=== PATIENT | female | born 1945 | race Caucasian/White ===

== ENCOUNTER → 2019-03-26 | Outpatient (CLI) | payer MEDICARE ==
[2019-03-26 17:12] LABS: Basophils % (A) 0 %; Eosinophils # (A) 0.2 k/uL (0-0.7); Eosinophils % (A) 3 %; HCT 43.6 % (34.0-46.0); Lymphocytes # (A) 2.3 k/uL (1.0-4.8); Lymphocytes % (A) 27 %; MCH 28.2 pg (25.0-35.0); MCHC 32.1 g/dL (31.0-37.0); MCV 87.9 fL (80.0-100.0); Mean Platelet Volume 7.4; Monocytes # (A) 0.4 k/uL (0-1.0); Monocytes % (A) 5 %; Neutrophils # (A) 5.4 k/uL (1.3-7.7); Neutrophils % (A) 63 %; Platelet Count 337 k/uL (150-450); RBC 4.96 m/uL (3.80-5.40); RDW 13.8 % (11.5-15.5); WBC 8.7 k/uL (3.8-10.6)
[2019-03-26 17:13] LABS: Appearance,Urine Cloudy (Clear); Bilirubin,Urine Negative (Negative); Blood,Urine Negative (Negative); Color,Urine Yellow; Glucose,Urine (UA) Negative (Negative); Ketones,Urine Negative (Negative); Leukocyte Esterase,Urine Negative (Negative); Mucus,Urine Occasional /hpf; Nitrite,Urine Negative (Negative); Protein,Urine Negative (Negative); RBC,Urine 2 /hpf (0-5); Specific Gravity,Urine 1.026 (1.001-1.035); Squamous Epithelial Cell,Urine 7 /hpf (0-4); Urobilinogen,Urine <2.0 mg/dL (<2.0); WBC,Urine 2 /hpf (0-5)
[2019-03-26 17:20] LABS: INR 0.9 (<1.2); Partial Thromboplastin Time 25.8 sec (22.0-30.0); Prothrombin Time 9.7 sec (9.0-12.0)
[2019-03-26 17:25] LABS: Calcium 9.6 mg/dL (8.4-10.2); Potassium 4.5 mmol/L (3.5-5.1)
== END | disposition home or self-care (01) ==
LOC: LABWHC1 15:50
PROVIDERS: ATTEND Orthopaedic Surgery Orthopaedic Surgery of the Spine
DX: Z01.812 Encounter for preprocedural laboratory examination (principal); M48.061 Spinal stenosis, lumbar region without neurogenic claudication; Z79.01 Long term (current) use of anticoagulants
CPT/HCPCS: 36415; 80048; 81001; 85025; 85610; 85730; 87070

== ENCOUNTER 2019-04-03 09:29 | Inpatient (IN) | payer MEDICARE ==
[2019-04-01 11:58] VITALS: BMI 42.3
[~2019-04-03 09:29] MED LIST: BACITRACIN 50,000 UNIT, POLYMYXIN B 500,000 UNIT in SODIUM CHLORIDE 0.9% IRRIGATIO 1,00... IRRIGATION ONE; LIDOCAINE 1% 20 ML VIAL (10MG/ML) FOR IV START INTRADERMA PRN; ONDANSETRON 4 MG/2 ML VIAL IVP ONE; ceFAZolin 3 GM in SODIUM CHLORIDE 0.9% 100 ML IVPB ONE
[2019-04-03] MEDS: LACTATED RINGERS 1,000 ML IV SCH (11:55)
[2019-04-03] MEDS ORDERED: MIDAZOLAM 2 MG/2 ML VIAL IVP ONE (12:00)
[2019-04-03] MEDS ORDERED: PHENYLEPHRINE-0.9% NACL SYG 1 MG/10 ML SYRINGE ONE (12:48)
[2019-04-03] MEDS ORDERED: DEXAMETHASONE SOD PHOS (MDV) 100 MG/10 ML VIAL ONE (12:48)
[2019-04-03] MEDS ORDERED: ROCURONIUM BROMIDE 10 MG/ML 10 ML VIAL IV ONE (12:48)
[2019-04-03] MEDS ORDERED: LACTATED RINGERS 1,000 ML BAG IV ONE (12:48)
[2019-04-03] MEDS ORDERED: MIDAZOLAM 2 MG/2 ML VIAL ONE (12:48)
[2019-04-03] MEDS ORDERED: FUROSEMIDE 10 MG/ML 2 ML VIAL ONE (12:48)
[2019-04-03] MEDS ORDERED: SUCCINYLCHOLINE CHLORIDE 100 MG/5 ML SYR IV ONE (12:48)
[2019-04-03] MEDS ORDERED: HEPARIN SODIUM,PORCINE 5,000 UNIT/ML 1 ML VIAL ONE (12:48)
[2019-04-03] MEDS ORDERED: PROPOFOL 10 MG/ML 20 ML VIAL IV ONE (12:48)
[2019-04-03] MEDS ORDERED: KETAMINE 10 MG/ML 20 ML VIAL ONE (12:48)
[2019-04-03] MEDS ORDERED: LIDOCAINE 1% INJ 10MG/ML (20 ML MDV) ONE (12:48)
[2019-04-03] MEDS ORDERED: HYDROmorphone (PF) 1 MG/ML ONE (12:48)
[2019-04-03] MEDS ORDERED: fentaNYL (PF) 50 MCG/ML 2 ML AMP ONE (12:48)
[2019-04-03] MEDS ORDERED: GELATIN SPONGE,ABSORB (LARGE) 1 EACH SPONGE TOPICAL ONE (13:41)
[2019-04-03] MEDS ORDERED: THROMBIN (BOVINE) 5,000 UNIT VIAL TOPICAL ONE (13:41)
[2019-04-03] MEDS ORDERED: BUPIVACAIN-EPI 0.25%-1:200,000 30 ML VIAL SQ ONE (13:42)
[2019-04-03] MEDS ORDERED: LACTATED RINGERS 1,000 ML IV ONE ×3 (14:21→17:58)
[2019-04-03] MEDS ORDERED: SODIUM CHLORIDE 0.9% 100 ML with ceFAZolin 2,000 MG IV ONE ×2 (17:05)
[2019-04-03] MEDS ORDERED: HYDROmorphone 0.5 MG/0.5 ML SYRINGE IVP PRN (19:05)
[2019-04-03] MEDS ORDERED: BENZOCAINE/MENTHOL LOZENG 1 EACH LOZENGE MUCOUS MEM PRN (19:05)
[2019-04-03] MEDS ORDERED: MAGNESIUM HYDROXIDE 2,400 MG/10 ML CUP PO PRN (19:05)
[2019-04-03] MEDS ORDERED: HYDROcodone/APAP 5-325MG 1 EACH TAB PO PRN (19:06)
[2019-04-03] MEDS ORDERED: HYDROmorphone 1 MG/ML 1 ML SYRINGE IVP PRN (19:06)
--- NOTE | 2019-04-03 19:18 | P.OP ---
Date of Procedure: 04/03/19 Preoperative Diagnosis: Spondylolisthesis L3 4 L4 5, severe spinal stenosis L3 4 L4 5, facet arthrosis L3 4 L4 5, lower extremity neuropathy, lower extremity weakness, neurogenic claudication, low back pain, degenerative disc disease, morbid obesity Postoperative Diagnosis: Same Anesthesia: GETA Pathology: none sent Condition: stable Disposition: PACU Description of Procedure: DESCRIPTION OF PROCEDURE(S): BRIEF OPERATIVE NOTE Preoperative Diagnosis: Spondylolisthesis L3 4 L4 5, severe spinal stenosis L3 4 L4 5, facet arthrosis L3 4 L4 5, lower extremity neuropathy, lower extremity weakness, neurogenic claudication, low back pain, degenerative disc disease, morbid obesity Postoperative Diagnosis:Spondylolisthesis L3 4 L4 5, severe spinal stenosis L3 4 L4 5, facet arthrosis L3 4 L4 5, lower extremity neuropathy, lower extremity weakness, neurogenic claudication, low back pain, degenerative disc disease, morbid obesity Procedure: Laminectomy and decompression L3 4 L4 5 Minimally invasive Posterior lateral decompression with discectomy and facet fusion L3 4 L4 5 Minimally invasive Transforaminal lumbar interbody fusion for a 360 fusion L3 4 L4 5 Discectomy for decompression L3 4 L4 5 Placement of interbody graft L3 4 L4 5 Use of demandmart computer navigation assisted device for ankle screw placement Local autogenous bone grafting Harvesting of bone marrow aspirate via the pedicle and vertebral body of L3 Use of Cell Saver Use of bone graft extenders Increased level of difficulty and time for the case due to patient's morbid obesity and body habitus Surgeon: Dr. Andrews Tube Pusher: Maurice Perez is present throughout the entire the case persistence during positioning, dissection, exposure, visualization, and all crucial elements of the case as well as closure. Anesthesia: General anesthesia per Dr. Chavez Estimated blood loss: Approximate 750 mL with a portion given back through Cell Saver Complications: None apparent Components implanted: K2M minimally invasive [place] pedicle screw system with [place] interbody cages and 10 mL of bio4 bone grafting and 30 mL of DBX bone matrix to supplemental local autogenous bone graft and bone marrow aspirate Disposition: To recovery room in good stable condition. OPERATIVE INDICATIONS The patient has had long-standing issues in their lower back and lower extremities. She is having worsening of her pain and issues with her lower extremities bilaterally. She is having evidence of weakness in her lower extremities difficulty getting around and difficulty with any sort of activities. She was having significant debility due to her back pain and lower extremity issues. She is found have severe spondylolisthesis and spinal stenosis at her lumbar spine which Maricruz well with her low back and lower e xtremity symptoms. The patient was not having any benefit despite aggressive conservative treatment. The patient has been through conservative treatment. We discussed various treatment options including surgery, and the patient wishes to proceed with surgery We discussed the risk, patient's alternatives and benefits of surgery including but not limited to, risk of bleeding risk of infection, risk of need for further surgery, risk of decreased, loss of motion, muscle function, malunion nonunion, hardware failure, nerve damage, paralysis, heart attack, blindness and . OPERATIVE SUMMARY After discussing all the risks, patient alternatives and benefits at length, the patient elected to proceed with surgical intervention, signed informed consent, and presented for their procedure. The patient was seen and examined in the preoperative holding area and the surgical site was marked. The patient was given antibiotics and brought to the operating room. The patient was sedated and intubated by anesthesia in standard fashion. The patient was positioned on to the operating room table in a prone position on the appropriate frame which was well-padded and well molded. We were careful to pad any bony prominences and pressure points. We were careful to maintain the patient's cervical spine and good neutral alignment and position throughout. The patient is morbidly obese and this increased the amount of time and effort and difficulty of the case through each aspect from anesthesia to positioning to dissection placement of hardware decompression, all of these were involved and are difficult. The patient was prepped and draped in a normal standard fashion. An appropriate timeout and keystone protocol performed. We were able to proceed with the surgery. The local wound area was infiltrated with local anesthetic. I was able utilize C-arm guidance as well as the demandmart navigation to establish appropriate position over the pedicles bilaterally at the appropriate levels at L3 4 and 5. With the appropriate levels confirmed was able to make small stab incisions over the appropriate pedicle sites bilaterally. Utilizing C-arm in his house able to establish a Jamshidi needle over the lateral aspect of the pedicle and advanced the trocar into the pedicle being careful not to breech superiorly inferiorly medially or laterally. Position was confirmed regularly with AP and lateral images on C-arm and the demandmart navigation system. I was able to establish the trocar into the pedicle appropriately into the posterior aspect of the vertebral body bilaterally at the appropriate levels at L3 4 and 5. This was done at each of the pedicle positions and each of the vertebrae. I was able place the guidewire into the trocar and into the vertebral body appropriately under C-arm guidance. Dissection was taken down over the wire to the appropriate starting position for the screw placed. The appropriate length screw was chosen, threaded over the guidewire and screwed appropriately into the pedicle and vertebral body under C-arm guidance in excellent alignment and position with good bony purchase. At L5 on the left we had issues with stimulation of the screw and I removed that screw and replaced its position. I was able get excellent alignment and position and excellent bony purchase with no evidence of stimulation with the Nims system. I was able stimulation each of the screws without any evidence of stimulation. This is done at each of the screw sites at the appropriate levels at L3 4 and 5. With the screws intact I extended the incision to connect the screw hole sites on the most symptomatic side on the right at L3 4 and 5. I dissected down to establish access over the pars and lamina to the base of the spinous process. I was able to expose the facet joint. Again that the patient's body habitus cause significant increased difficulty and time in the case. The capsule the facet was taken down and showed some facet arthrosis at the joint. I was able to use a combination of curettes and Kerrison rongeurs and a high-speed drill to take down the facet joint and do a facetectomy. Partial laminectomy was also performed. I was able get excellent foraminal decompression and central decompression with undermining across midline to perform a laminectomy centrally and contralaterally. The patient had severe central and bilateral foraminal stenosis which was remedied with the decompression. As able get good central decompression. The ligamentum flavum was taken down to further decompress centrally and at bilateral neural foramen. I was able to expose the disc space and visualize the traversing nerve root. Note was made of some disc protrusion at the level causing further compression of the nerve root. I was able to establish a annulotomy at the appropriate level protecting soft tissue and neural structures. Note was made of some disc desiccation at the disc. I performed a complete discectomy with accommodation of curettes and rasps and scrapers. I was able get good endplate preparation at the disc space. I sized for the appropriate size interbody spacer protecting the soft tissue and neural structures. The wound was copiously irrigated and suctioned dry. There is no evidence of any dural tear or leak. I was able to pack the disc space with local autogenous bone graft as well as a small amount of bone graft which was also placed into the interbody cage itself. Protecting the soft tissue structures and neural structures I was able place the interbody cage in good alignment and good position with good fit and fill at the interbody space. Position was confirmed with C-arm guidance. Good hemostasis maintained. There is no evidence of any dural tear or leak. The wound was irrigated and suctioned dry. With the hardware intact, intraoperative C-arm imaging was again taken which showed good alignment and position of the hardware at the appropriate levels at L3 4 and 5. We were then able to measure, contour and place the rods and appropriate hardware bilaterally. I was able to place capcrews, tighten them down, and torque them with the torque screwdriver appropriately. With this intact I was able to place the local autogenous bone graft with additional bone graft enhancer as necessary into the posterior lateral gutters over the decorticated transverse processes. The remainder of the bone graft was placed over the facet joint on the contralateral side after taking down the facet joint capsule. With the bone graft intact, a stable construct, and good decompression at the appropriate levels, we were able to proceed with closure. Good hemostasis was maintained. There is no evidence of dural tear or leak. The fascia was closed for a watertight closure. he subcuticular tissue was closed with absorbable suture. The wound was cleaned and dried and dressed with the appropriate dressing. The drapes were broken down. The patient was gently rolled back onto their hospital bed being careful to maintain their cervical spine and good neutral alignment and position. They were woken up by anesthesia, extubated, and brought to the recovery room in good stable condition. The patient will be admitted to the hospital for appropriate postoperative care, medical management and monitoring. We will continue to follow them closely about the postoperative course.
[2019-04-03] MEDS: HYDROmorphone 0.5 MG/0.5 ML SYRINGE IVP PRN ×2 (19:25→19:40)
[2019-04-03] MEDS ORDERED: amLODIPine 5 MG TAB PO SCH (21:00)
[2019-04-03] MEDS ORDERED: LOSARTAN-HCTZ 50-12.5 MG 1 EACH TAB PO SCH (21:00)
[2019-04-03] MEDS: ONDANSETRON 4 MG/2 ML VIAL IVP PRN (21:06)
--- NOTE | 2019-04-03 21:49 | FL ---
EXAMINATION TYPE: FL guidance operating room DATE OF EXAM: 04/03/2019 HISTORY: Fluoroscopy time 1 minute and 49 seconds of fluoroscopy provided. IMPRESSION: 1. Fluoroscopy time. AI
[2019-04-03] MEDS: HYDROmorphone 1 MG/ML 1 ML SYRINGE IVP PRN (22:47)
[2019-04-03] MEDS: SODIUM CHLORIDE 0.9% 1,000 ML IV SCH (22:48)
[2019-04-04] MEDS: ceFAZolin 3 GM in SODIUM CHLORIDE 0.9% 100 ML IVPB SCH ×4 (00:37→23:46)
[2019-04-04] MEDS: HYDROmorphone 1 MG/ML 1 ML SYRINGE IVP PRN ×7 (01:42→21:42)
[2019-04-04] MEDS: CYCLOBENZAPRINE 10 MG TAB PO PRN ×3 (07:37→21:44)
[2019-04-04 07:51] LABS: Basophils # (A) 0.1 k/uL (0-0.2); Basophils % (A) 1 %; Eosinophils % (A) 0 %; HCT 38.7 % (34.0-46.0); HGB 12.1 gm/dL (11.4-16.0); Lymphocytes # (A) 1.2 k/uL (1.0-4.8); Lymphocytes % (A) 8 %; MCH 27.3 pg (25.0-35.0); MCHC 31.2 g/dL (31.0-37.0); MCV 87.5 fL (80.0-100.0); Mean Platelet Volume 7.3; Monocytes # (A) 0.7 k/uL (0-1.0); Monocytes % (A) 5 %; Neutrophils % (A) 85 %; Platelet Count 244 k/uL (150-450); RBC 4.43 m/uL (3.80-5.40); RDW 13.8 % (11.5-15.5); WBC 14.2 k/uL (3.8-10.6)
[2019-04-04 07:58] LABS: African American GFR (CKD) >90 (>60 ml/min/1.73 sqM); Anion Gap 5 mmol/L; Blood Urea Nitrogen 14 mg/dL (7-17); Calcium 8.5 mg/dL (8.4-10.2); Carbon Dioxide 31 mmol/L (22-30); Chloride 104 mmol/L (98-107); Glucose 132 mg/dL (74-99); Non-African American GFR(CKD) 80 (>60 ml/min/1.73 sqM); Potassium 4.6 mmol/L (3.5-5.1); Sodium 140 mmol/L (137-145)
[2019-04-04] MEDS: SENNOSIDES-DOCUSATE SODIUM 1 EACH TAB PO SCH (08:25)
[2019-04-04] MEDS: ASCORBIC ACID 500 MG TAB PO SCH (08:25)
[2019-04-04] MEDS ORDERED: NON FORMULARY DRUG (Biotin [Biotin] 10,000 MCG) PO SCH (09:00)
[2019-04-04] MEDS: LACTATED RINGERS 1,000 ML IV SCH (09:29)
[2019-04-04] MEDS: traMADol 50 MG TAB PO PRN ×3 (10:39→23:47)
--- NOTE | 2019-04-04 11:21 | P.PN ---
Progress Note - Text Progress Note Date: 04/04/19 Postoperative day #1 Patient is seen and examined today at bedside. The patient has some pain around the surgical site as expected. Pain is being controlled with medication. She has been up out of bed standing at her bedside. She still has. Significant difficulty with any sort of mobilization. Physical Exam Afebrile with stable vital signs Abdomen is soft nontender. Chest has good excursion deep and space expiration The incision site is clean dry and intact. No erythema there is no purulence. Dressings are intact and clean Extremities have not had neurologic change from prior to surgery. She has sustained dorsal flexion plantar flexion and EHL intact Calves and thighs were soft nontender without evidence of DVT. Assessment/Plan Postoperative day #1 status post milium base of decompression and fusion L3 4 L4 5 for her severe spinal stenosis with spondylolisthesis disc degeneration lower extremity radiculopathy Patient is progressing as expected from the surgery. She has great deal of difficulty with her mobilization and it'll be very difficult for her to have her Pop out today given her body habitus and mobility. We'll continue the IV and Robaxin have her keep her Pop the morning. We will continue to increase the patient's mobilization with therapy. We will continue pain control with oral or IV medications. We'll continue to follow patient closely.
[2019-04-04] MEDS: SODIUM CHLORIDE 0.9% 1,000 ML IV SCH ×2 (12:31→23:48)
--- NOTE | 2019-04-04 13:22 | P.CONS ---
History of Present Illness - Reason for Consult COPD - History of Present Illness patient is a pleasant 81-year-old female admitted for left lumbar decompression surgery of L3-L4 and L4-L5 and severe spinal stenosis patient successfully underwent surgery did not pass gas did not move her bowel yet patient doesn't have any Pop catheter this time. Patient denied any fever chills. Denied any cough dysuria.patient is still having severe pain in the back. Review of Systems REVIEW OF SYSTEMS: CONSTITUTIONAL: No fever, no malaise, no fatigue. HEENT: No recent visual problems or hearing problems. Denied any sore throat. CARDIOVASCULAR: No chest pain, orthopnea, PND, no palpitations, no syncope. PULMONARY: No shortness of breath, no cough, no hemoptysis. GASTROINTESTINAL: No diarrhea, no nausea, no vomiting, no abdominal pain. NEUROLOGICAL: No headaches, no weakness, no numbness. HEMATOLOGICAL: Denies any bleeding or petechiae. GENITOURINARY: Denies any burning micturition, frequency, or urgency. MUSCULOSKELETAL/RHEUMATOLOGICAL: Denies any joint pain, swelling, or any muscle pain. ENDOCRINE: Denies any polyuria or polydipsia. The rest of the 14-point review of systems is negative. Past Medical History Past Medical History: Cancer, COPD, Hypertension, Osteoarthritis (OA), Pneumonia Additional Past Medical History / Comment(s): Hx skin cancer on arm, 5 yrs ago, COPD, SOB, Neuropathy in bilateral legs. History of Any Multi-Drug Resistant Organisms: None Reported Past Surgical History: Cholecystectomy, Joint Replacement, Orthopedic Surgery Additional Past Surgical History / Comment(s): Bilateral knee replacements, neck fusion, bilateral cataract surgery. Past Anesthesia/Blood Transfusion Reactions: Postoperative Nausea & Vomiting (PONV) Additional Past Anesthesia/Blood Transfusion Reaction / Comm: Grandparent allergic to Robinul. Past Psychological History: No Psychological Hx Reported Smoking Status: Former smoker Past Alcohol Use History: Rare Additional Past Alcohol Use History / Comment(s): Quit smoking 01/12/19, smoked 34-40 yrs, 1 PPD. Past Drug Use History: Marijuana Additional Drug Use History / Comment(s): Hx using Marijuana gummies/edibles and "smoking Pot." States hasn't used since Dec 2018. - Past Family History Father Family Medical History: Cancer Additional Family Medical History / Comment(s): Leukemia, . Mother Additional Family Medical History / Comment(s): Aneurysym, . Brother(s) Family Medical History: Blood Disorder Additional Family Medical History / Comment(s): Half brother has Factor V. Medications and Allergies Home Medications Medication Instructions Recorded Confirmed Type Ascorbic Acid [Vitamin C with Esther 1,000 mg PO DAILY 04/01/19 04/01/19 History Hips] Biotin 10,000 mcg PO DAILY 04/01/19 04/01/19 History HYDROcodone/APAP 10-325MG [Waterman 1 tab PO BID 04/01/19 04/01/19 History 10-325] Losartan-Hctz 50-12.5 mg [Hyzaar 1 tab PO HS 04/01/19 04/01/19 History 50-12.5] Meloxicam [Mobic] 7.5 mg PO DAILY 04/01/19 04/01/19 History Silver Supplement 50 mg PO DAILY 04/01/19 04/01/19 History amLODIPine BESYLATE [Norvasc] 5 mg PO HS 04/01/19 04/01/19 History Allergies Allergy/AdvReac Type Severity Reaction Status Date / Time No Known Allergies Allergy Verified 04/01/19 11:58 Physical Exam Vitals: Vital Signs Temp Pulse Resp BP BP Pulse Ox 04/04/19 07:20 98.9 F 89 18 99/61 95 04/04/19 04:00 17 04/04/19 01:47 99.5 F 99 17 114/68 96 04/04/19 00:37 17 04/03/19 22:49 103 H 148/75 97 04/03/19 22:34 100 149/73 97 04/03/19 22:19 103 H 151/80 97 04/03/19 22:04 107 H 150/67 94 L 04/03/19 21:49 104 H 154/80 97 04/03/19 21:34 105 H 88/66 97 04/03/19 21:19 109 H 145/80 98 04/03/19 21:04 102 H 144/74 98 04/03/19 20:48 98.7 F 107 H 17 152/82 98 04/03/19 20:45 17 04/03/19 20:05 100 16 152/69 97 04/03/19 19:55 99 16 140/67 98 04/03/19 19:40 100 16 141/63 95 04/03/19 19:30 101 H 16 139/67 94 L 04/03/19 19:15 98 F 106 H 16 150/76 98 Intake and Output 04/03/19 04/04/19 04/04/19 22:59 06:59 14:59 Intake Total 1601 100 Output Total 1300 1875 900 Balance 301 -1875 -800 Intake: IV 1601 Oral 100 Output: Urine 550 1875 900 Estimated Blood Loss 750 Other: Voiding Method Indwelling Catheter Indwelling Catheter Weight 131 kg PHYSICAL EXAMINATION: GENERAL: The patient is alert and oriented x3, not in any acute distress. Well developed, well nourished. HEENT: Pupils are round and equally reacting to light. EOMI. No scleral icterus. No conjunctival pallor. Normocephalic, atraumatic. No pharyngeal erythema. No thyromegaly. CARDIOVASCULAR: S1 and S2 present. No murmurs, rubs, or gallops. PULMONARY: Chest is clear to auscultation, no wheezing or crackles. ABDOMEN: Soft, nontender, nondistended, normoactive bowel sounds. No palpable organomegaly. MUSCULOSKELETAL:deferred to primary service EXTREMITIES: No cyanosis, clubbing, or pedal edema. NEUROLOGICAL: Gross neurological examination did not reveal any focal deficits. SKIN: No rashes. Results CBC & Chem 7: 04/04/19 06:58 04/04/19 06:58 Labs: Abnormal Lab Results - Last 24 Hours (Table) 04/04/19 04/04/19 Range/Units 06:58 06:58 WBC 14.2 H (3.8-10.6) k/uL Neutrophils # 12.0 H (1.3-7.7) k/uL Carbon Dioxide 31 H (22-30) mmol/L Glucose 132 H (74-99) mg/dL Assessment and Plan Plan: -hypertension: To prevent perioperative hypotension which is expected hold off on amlodipine, losartan and hydrochlorothiazide COPD without any acute exacerbation -leukocytosis reactive seconded to surgery no signs or symptoms of infection at this time -lumbar laminectomy: Pain management and due to prophylaxis as per primary service
[2019-04-05] MEDS: HYDROmorphone 1 MG/ML 1 ML SYRINGE IVP PRN ×5 (01:11→21:29)
[2019-04-05] MEDS: LACTATED RINGERS 1,000 ML IV SCH (05:16)
[2019-04-05] MEDS: ONDANSETRON 4 MG/2 ML VIAL IVP PRN ×2 (05:21→11:14)
[2019-04-05] MEDS: CYCLOBENZAPRINE 10 MG TAB PO PRN (07:03)
[2019-04-05] MEDS: traMADol 50 MG TAB PO PRN ×3 (07:04→19:45)
[2019-04-05] MEDS: amLODIPine 5 MG TAB PO SCH (08:27)
[2019-04-05] MEDS: SENNOSIDES-DOCUSATE SODIUM 1 EACH TAB PO SCH (08:28)
[2019-04-05] MEDS: ASCORBIC ACID 500 MG TAB PO SCH (08:28)
--- NOTE | 2019-04-05 08:51 | P.PN ---
Progress Note - Text Progress Note Date: 04/05/19 Orthopedic Spine: History of present illness: Patient is a pleasant 73-year-old female who is seen and examined at the bedside following posterior lateral decompression and fusion performed Monday. She continues to have significant difficulty with any mobilization. She states her pain is well-controlled at rest. She's experiences significant spasm in the lumbar spine with any movement of her lumbar spine. She was able to work with physical therapy to get out of bed yesterday. She is not able to ambulate to the restroom. She continues to have her Pop catheter intact. Currently does not complain of nausea, vomiting, fever, or chills. Patient states pain has been adequately controlled while at rest. Patient is eating without difficulty. She continues to feel she will need rehabilitation at discharge does not currently feel should be ready for discharge tomorrow. Physical Exam Lumbar Fusion: Status post surgical day number 2 Patient is awake, alert, and oriented 3 Vital signs stable Good chest excursion with deep inspiration and expiration Dorsiflexion, plantarflexion, and extensor hallucis longus positive sustained bilaterally No signs or symptoms of DVT; no calf pain; pneumatic cuffs intact bilateral lo wer extremities Dressings are clean, dry, and intact; no erythema, purulence, or signs of infection No significant pain on palpation over the surgical sites Significant difficulty with any mobilization while lying in bed Pop catheter intact Neurovascularly intact bilaterally lower extremities Assessment: L3-4 and L4 to 5 minimally invasive posterior lateral decompression and fusion with transforaminal lumbar interbody fusion L3-4 and L4-5 spondylolisthesis L3-4 and L4 to 5 facet arthrosis L3-4 and L4-5 severe spinal canal stenosis Lower extremity radiculopathy with weakness Neurogenic claudication Low back pain Lumbar degenerative disc disease Morbid obesity with a BMI of 43.9 History of neuropathy Unsteady gait Plan: 1. Ambulate as tolerated; work with Physical Therapy to increase mobilization 2. Continue pain control with IV and oral medications with IV Dilaudid and oral tramadol; patient is having significant difficulty with muscle spasm. We will plan to discontinue Flexeril 10 mg and and Valium 5 mg 1 tab 3 times a day as needed for muscle spasm. 3. Dressing to remain intact with silver and Tegaderm; patient may shower with dressing is intact 4. Medical management can continue to manage patient for patient's other medical diagnoses 5. We will continue to follow the patient closely; patient will most likely need rehabilitation the time of discharge. Consultation has been placed with social work. Based on the patient's significant difficulty with any mobilization post operatively, unless the patient is able to have substantial improvement today, she'll most likely plan for discharge to a rehabilitation facility as early as this coming 04/08/2019. 6. Plan to discontinue her Pop catheter when she is able to increase mobilization 7. Patient can follow-up with Maurice Dnaiels PA-C or Dr. Bishop Andrews at [facility] in 2-3 weeks following discharge
[2019-04-05] MEDS: ceFAZolin 3 GM in SODIUM CHLORIDE 0.9% 100 ML IVPB SCH ×2 (09:48→18:30)
[2019-04-05] MEDS: DIAZEPAM 5 MG TAB PO PRN ×2 (09:48→18:30)
[2019-04-05] MEDS: SODIUM CHLORIDE 0.9% 1,000 ML IV SCH (14:01)
--- NOTE | 2019-04-05 14:34 | P.PN ---
Subjective patient is a pleasant 81-year-old female admitted for left lumbar decompression surgery of L3-L4 and L4-L5 and severe spinal stenosis patient successfully underwent surgery did not pass gas did not move her bowel yet patient doesn't have any Pop catheter this time. Patient denied any fever chills. Denied any cough dysuria.patient is still having severe pain in the back. 04/05/2019 Patient is still having significant of pain in the back does have good bowel sounds chest is clear to auscultation. Constitutional: Denied any fatigue denied any fever. Cardio vascular: denied any chest pain, palpitations Gastrointestinal denied any nausea vomiting Pulmonary: Denied any shortness of breath cough Neurologic denied any new focal deficits All inpatient medications were reviewed and appropriate changes in these medications as dictated in the interval history and assessment and plan. Objective - Vital Signs Vital signs: Vital Signs Temp 98.9 F 04/05/19 07:00 Pulse 95 04/05/19 07:00 Resp 17 04/05/19 07:00 BP 117/69 04/05/19 07:00 Pulse Ox 93 L 04/05/19 07:00 Intake & Output 04/04/19 04/05/19 04/05/19 18:59 06:59 18:59 Intake Total 350 600 Output Total 900 1200 300 Balance -550 -1200 300 Intake: Intake, IV Titration 600 Amount Sodium Chloride 0.9% 1, 600 000 ml @ 75 mls/hr IV . [id number] [facility] Rx#:[id number] Oral 350 Output: Urine 900 1200 300 Other: Voiding Method Indwelling Catheter Indwelling Catheter Indwelling Catheter - Exam PHYSICAL EXAMINATION: GENERAL: The patient is alert and oriented x3, not in any acute distress. Obese HEENT: Pupils are round and equally reacting to light. EOMI. No scleral icterus. No conjunctival pallor. Normocephalic, atraumatic. No pharyngeal erythema. No thyromegaly. CARDIOVASCULAR: S1 and S2 present. No murmurs, rubs, or gallops. PULMONARY: Chest is clear to auscultation, no wheezing or crackles. ABDOMEN: Soft, nontender, nondistended, normoactive bowel sounds. No palpable organomegaly. MUSCULOSKELETAL:deferred to primary service EXTREMITIES: No cyanosis, clubbing, or pedal edema. NEUROLOGICAL: Gross neurological examination did not reveal any focal deficits. SKIN: No rashes. - Labs CBC & Chem 7: 04/04/19 06:58 04/04/19 06:58 Assessment and Plan Plan: -hypertension: To prevent perioperative hypotension which is expected hold off on amlodipine, losartan and hydrochlorothiazide, blood pressure is stable is not elevated. COPD without any acute exacerbation patient is not on any oxygen chest is clear to auscultation -leukocytosis reactive seconded to surgery no signs or symptoms of infection at this time -lumbar laminectomy: Pain management and due to prophylaxis as per primary ser vice
[2019-04-06] MEDS: SODIUM CHLORIDE 0.9% 1,000 ML IV SCH ×2 (00:22→15:37)
[2019-04-06] MEDS: HYDROmorphone 1 MG/ML 1 ML SYRINGE IVP PRN ×2 (01:56→07:57)
[2019-04-06] MEDS: DIAZEPAM 5 MG TAB PO PRN (03:21)
[2019-04-06] MEDS ORDERED: DILTIAZEM DRIP BOLUS FROM BAG 1 MG SOLN IV STA (04:34)
[2019-04-06] MEDS: traMADol 50 MG TAB PO PRN ×3 (04:40→23:51)
[2019-04-06] MEDS: DILTIAZEM 125 MG in SODIUM CHLORIDE 0.9% 100 ML IV SCH ×2 (05:14→18:58)
[2019-04-06] MEDS: LACTATED RINGERS 1,000 ML IV SCH (05:15)
[2019-04-06] MEDS: amLODIPine 5 MG TAB PO SCH (07:59)
[2019-04-06] MEDS: SENNOSIDES-DOCUSATE SODIUM 1 EACH TAB PO SCH (07:59)
[2019-04-06] MEDS: ASCORBIC ACID 500 MG TAB PO SCH (07:59)
[2019-04-06] MEDS ORDERED: METOPROLOL TARTRATE 25 MG TAB PO STA (08:20)
[2019-04-06 09:15] LABS: African American GFR (CKD) >90 (>60 ml/min/1.73 sqM); Anion Gap 5 mmol/L; Blood Urea Nitrogen 14 mg/dL (7-17); Calcium 8.3 mg/dL (8.4-10.2); Carbon Dioxide 32 mmol/L (22-30); Chloride 99 mmol/L (98-107); Glucose 101 mg/dL (74-99); Non-African American GFR(CKD) 89 (>60 ml/min/1.73 sqM); Potassium 4.3 mmol/L (3.5-5.1); Sodium 136 mmol/L (137-145)
[2019-04-06 09:17] LABS: Basophils # (A) 0.2 k/uL (0-0.2); Basophils % (A) 1 %; Eosinophils # (A) 0.1 k/uL (0-0.7); Eosinophils % (A) 0 %; HCT 36.2 % (34.0-46.0); HGB 11.8 gm/dL (11.4-16.0); Lymphocytes # (A) 1.5 k/uL (1.0-4.8); Lymphocytes % (A) 10 %; MCH 28.5 pg (25.0-35.0); MCHC 32.6 g/dL (31.0-37.0); MCV 87.6 fL (80.0-100.0); Mean Platelet Volume 7.8; Monocytes # (A) 0.8 k/uL (0-1.0); Monocytes % (A) 5 %; Neutrophils # (A) 12.9 k/uL (1.3-7.7); Neutrophils % (A) 82 %; Platelet Count 286 k/uL (150-450); RBC 4.14 m/uL (3.80-5.40); RDW 13.7 % (11.5-15.5); WBC 15.8 k/uL (3.8-10.6)
--- NOTE | 2019-04-06 10:04 | CONS ---
CONSULTATION DATE OF SERVICE: April 06, 2019. REASON FOR THE CONSULTATION: Cardiac arrhythmia. HISTORY OF PRESENT ILLNESS: This is a pleasant 73-year-old female patient with history of hypertension, but no history of coronary artery disease or congestive heart failure or any history of cardiac arrhythmia in the past was admitted to the hospital and underwent lumbar spine surgery. After surgery, the patient noticed to be tachycardic and an EKG was performed and revealed atrial fibrillation with RVR. Subsequently, the patient was transferred to the 3rd floor and she was started on Cardizem drip. Currently, the patient is on Cardizem drip at 10 mg/hour. She was given Cardizem 10 mg IV bolus. She continues to be in atrial fibrillation with heart rate around 120 to 130 beats per minute. She denies any symptoms of chest pain or chest discomfort or shortness of breath or dizziness or heart racing or syncope. On examination, she does have a very tiny crackles in both lung fills. No lower extremities edema noted. According to her daughter who is a nurse, the patient gained about 2 pounds because she was on losartan/hydrochlorothiazide and that was stopped a few weeks ago because she received a call to stop the medication. PAST MEDICAL HISTORY: Past medical history includes hypertension. SOCIAL HISTORY: The patient does not smoke or drink alcohol. FAMILY HISTORY: Family history is not relevant. PHYSICAL EXAMINATION: VITALS: She is tachycardic. The blood pressure is within normal limits. The respiratory rate is within normal limits. RESPIRATORY EXAMINATION: She had tiny crackles in both lung stevens. CARDIOVASCULAR: Examination shows irregular rhythm with a normal S1 and S2. EXTREMITY EXAMINATION: No pedal edema. Her chest x-ray, EKG, and blood work reviewed. The EKG revealed atrial fibrillation with RVR. ASSESSMENT: 1. Atrial fibrillation with rapid ventricular response. This is a new diagnosis to the patient. 2. Hypertension. 3. Status post noncardiac surgery. PLAN: 1. Agree to keep the patient on the current dose of Cardizem. 2. Add metoprolol p.o. 25 mg b.i.d. 3. Hold heparin at this point because the surgeon would like us to hold the heparin in view of her recent surgery. 4. Obtain an echocardiogram with Doppler. 5. Consider oral anticoagulation down the line. 6. Obtain a chest x-ray. 7. Obtain a BMP. Thank you for allowing us to participate in her care and we will continue following up with the patient. MMFLORL / IJN: [id number] /
--- NOTE | 2019-04-06 12:10 | XR ---
EXAMINATION TYPE: XR chest 1V DATE OF EXAM: 04/06/2019 HISTORY: dyspnea. REFERENCE: NONE. FINDINGS: The heart is mildly enlarged. There is some atelectatic change present at both lung bases. There is chronic appearing elevation of the right hemidiaphragm. There is blunting of both CP angles. I could not exclude small effusions. IMPRESSION: 1. MILD CARDIOMEGALY. 2. BIBASILAR AIRSPACE DISEASE EITHER REPRESENTING ATELECTASIS OR PNEUMONIA. 3. I COULD NOT EXCLUDE TINY, BILATERAL EFFUSIONS.
--- NOTE | 2019-04-06 12:11 | P.PN ---
Subjective Progress Note Date: 04/06/19 This patient is a 73 year old female that is status-post posterior lateral decompression and fusion performed on 04/03/[address] Andrews. Today is post-operative day #3. Overnight, the patient was tachycardiac, and an EKG revealed atrial fibrillation with RVR.The patient was subsequently transferred to [address] [place] [address] and was placed on a cardizem drip. Currently, the patient states she feels well. She denies history of cardiac arrhythmia. The patient has had issues with mobilization in the post-operative period. Although the patient has been able to stand at the bedside today. She has not yet made it to the bathroom, her macias catheter remains in place. She is tolerating her diet well. She denies chest pain, shortness of breath, nausea, vomiting. Vital signs currently stable. Objective - Vital Signs Vital signs: Vital Signs Temp 97.8 F 04/06/19 11:29 Pulse 70 04/06/19 11:35 Resp 20 04/06/19 11:35 BP 105/61 04/06/19 11:29 Pulse Ox 92 L 04/06/19 11:29 Intake & Output 04/05/19 04/06/19 04/06/19 18:59 06:59 18:59 Intake Total 600 590 242 Output Total 300 1500 Balance 300 -910 242 Intake: IV 30 Invasive Line 2 30 Intake, IV Titration 600 12 Amount Diltiazem 125 mg In 12 Sodium Chloride 0.9% 100 ml @ 5 MG/HR 5 mls/hr IV .Q24H [facility] Rx#:[id number] Sodium Chloride 0.9% 1, 600 000 ml @ 75 mls/hr IV . [id number] [facility] Rx#:[id number] Oral 590 200 Output: Urine 300 1500 Uretheral (Macias) 1500 Other: Voiding Method Indwelling Catheter Indwelling Catheter Indwelling Catheter - Exam On examination, the patient is sitting up in bed in no apparent distress. She is alert and orientated x3. Her breathing appears non-labored. Macias catheter in place. On inspection of the lower back, there are clean, dry, intact dressings in place. No surrounding erythema, warmth, fluctuance; no signs of infection. Motor and sensory function appear to be intact of the bilateral lower extremities. Bilateral lower extremity compression cuffs in place. Patient has good range of motion of the ankles bilaterally. The bilateral lower extremities are warm and well perfused with brisk capillary refill distally. - Labs CBC & Chem 7: 04/06/19 07:52 04/06/19 07:52 Labs: Abnormal Lab Results - Last 24 Hours (Table) 04/06/19 04/06/19 Range/Units 07:52 07:52 WBC 15.8 H (3.8-10.6) k/uL Neutrophils # 12.9 H (1.3-7.7) k/uL Sodium 136 L (137-145) mmol/L Carbon Dioxide 32 H (22-30) mmol/L Glucose 101 H (74-99) mg/dL Calcium 8.3 L (8.4-10.2) mg/dL Assessment and Plan Assessment: Status-post L3-4 and L4-5 minimally invasive posterior lateral decompression and fusion with transforaminal lumbar interbody fusion. Post-operative day #3. Plan: - Ambulate as tolerated. Continue physical therapy to increase mobilization as tolerated. - Continue pain management. - Keep dressing clean, dry, intact. She may shower with dressings intact. - D/C macias catheter when patient is able to ambulate to bathroom. - Atrial fibrillation and other medical management per internal medicine and cardiology. Anti-coagulation is ok from orthopedic standpoint. - We will continue to follow patient closely while she remains inpatient. She may need rehab placement at discharge. - Patient will follow-up in the office in 2-3 weeks following discharge.
[2019-04-06] MEDS: HYDROcodone/APAP 5-325MG 1 EACH TAB PO PRN ×2 (12:37→17:47)
[2019-04-06] MEDS: FUROSEMIDE 10 MG/ML 4 ML VIAL IV SCH ×2 (12:37→19:37)
[2019-04-06] MEDS: ENOXAPARIN 120 MG/0.8 ML SYRINGE SQ SCH ×2 (15:25→19:37)
[2019-04-06] MEDS: METOPROLOL TARTRATE 25 MG TAB PO SCH (19:37)
[2019-04-06] MEDS ORDERED: traMADol 50 MG TAB ONE (23:50)
[2019-04-07] MEDS: LACTATED RINGERS 1,000 ML IV SCH (01:02)
[2019-04-07] MEDS: ONDANSETRON 4 MG/2 ML VIAL IVP PRN (03:32)
[2019-04-07] MEDS: HYDROmorphone 1 MG/ML 1 ML SYRINGE IVP PRN ×2 (03:33→15:17)
[2019-04-07 06:42] LABS: HGB 10.7 gm/dL (11.4-16.0); MCH 28.3 pg (25.0-35.0); MCHC 32.3 g/dL (31.0-37.0); MCV 87.6 fL (80.0-100.0); Mean Platelet Volume 7.4; Platelet Count 271 k/uL (150-450); RBC 3.77 m/uL (3.80-5.40); RDW 13.4 % (11.5-15.5); WBC 11.2 k/uL (3.8-10.6)
[2019-04-07 06:50] LABS: African American GFR (CKD) >90 (>60 ml/min/1.73 sqM); Anion Gap 2 mmol/L; Blood Urea Nitrogen 18 mg/dL (7-17); Calcium 8.1 mg/dL (8.4-10.2); Carbon Dioxide 37 mmol/L (22-30); Chloride 98 mmol/L (98-107); Glucose 97 mg/dL (74-99); Non-African American GFR(CKD) 88 (>60 ml/min/1.73 sqM); Potassium 3.8 mmol/L (3.5-5.1); Sodium 137 mmol/L (137-145)
[2019-04-07] MEDS: ASCORBIC ACID 500 MG TAB PO SCH (09:39)
[2019-04-07] MEDS: ENOXAPARIN 120 MG/0.8 ML SYRINGE SQ SCH (09:39)
[2019-04-07] MEDS: METOPROLOL TARTRATE 25 MG TAB PO SCH (09:40)
[2019-04-07] MEDS: FUROSEMIDE 10 MG/ML 4 ML VIAL IV SCH ×2 (09:40→21:42)
[2019-04-07] MEDS: HYDROcodone/APAP 5-325MG 1 EACH TAB PO PRN ×4 (09:40→21:42)
[2019-04-07] MEDS: SENNOSIDES-DOCUSATE SODIUM 1 EACH TAB PO SCH (09:40)
--- NOTE | 2019-04-07 10:27 | P.PN ---
Subjective Progress Note Date: 04/07/19 This patient is a 73 year old female that is status-post posterior lateral decompression and fusion performed on 04/03/[address] Andrews. 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 She denies history of cardiac arrhythmia. Today's postoperative day #4. The patient states she slept through the night and did not receive any pain medications, therefore she is experiencing increased pain this morning. Although, she still able to mobilize to the bedside chair without significant issues. She continues to have issues with mobilization. Her Macias catheter is still in place, she is unable to ambulate to the bathroom yet. Per nursing, Macias catheter will be pulled today and a bedside commode will be obtained. She is tolerating her diet well. She denies shortness of breath, she has been requiring a nasal cannula on 12L of oxygen, which has decreased to 8L currently. She notes mild discomfort in her chest. She denies nausea, vomiting, fevers, chills. Vital signs stable. Objective - Vital Signs Vital signs: Vital Signs Temp 98 F 04/07/19 03:01 Pulse 99 04/07/19 03:01 Resp 18 04/07/19 03:01 BP 135/76 04/07/19 03:01 Pulse Ox 95 04/07/19 03:01 Intake & Output 04/06/19 04/07/19 04/07/19 18:59 06:59 18:59 Intake Total 777.667 40 Output Total 1200 1125 Balance -422.333 -1085 Weight 132.5 kg Intake: IV 40 Invasive Line 2 40 Intake, IV Titration 115.667 40 Amount Diltiazem 125 mg In 115.667 Sodium Chloride 0.9% 100 ml @ 5 MG/HR 5 mls/hr IV .Q24H [facility] Rx#:[id number] Sodium Chloride 0.9% 1, 40 000 ml @ 75 mls/hr IV . [id number] [facility] Rx#:[id number] Oral 622 Output: Urine 1200 1125 Other: Voiding Method Indwelling Catheter Indwelling Catheter - Exam On examination, the patient is sitting up in the bedside chair in no apparent distress. She is alert and orientated x3. Her breathing appears non-labored, nasal cannula in place. Macias catheter in place. On inspection of the lower back, there are clean, dry, intact dressings in place. Ecchymosis surrounding the incision sites. No surrounding erythema, warmth, fluctuance; no signs of infection. Motor and sensory function appear to be intact of the bilateral lower extremiti es. Bilateral lower extremity compression cuffs in place. Patient has good range of motion of the ankles bilaterally. The bilateral lower extremities are warm and well perfused with brisk capillary refill distally. - Labs CBC & Chem 7: 04/07/19 06:09 04/07/19 06:09 Labs: Abnormal Lab Results - Last 24 Hours (Table) 04/07/19 04/07/19 Range/Units 06:09 06:09 WBC 11.2 H (3.8-10.6) k/uL RBC 3.77 L (3.80-5.40) m/uL Hgb 10.7 L (11.4-16.0) gm/dL Hct 33.0 L (34.0-46.0) % Carbon Dioxide 37 H (22-30) mmol/L BUN 18 H (7-17) mg/dL Calcium 8.1 L (8.4-10.2) mg/dL Assessment and Plan Assessment: Status-post L3-4 and L4-5 minimally invasive posterior lateral decompression and fusion with transforaminal lumbar interbody fusion. Post-operative day #4. Plan: - Ambulate as tolerated. Continue physical therapy to increase mobilization as tolerated. - Continue pain management. - Keep dressing clean, dry, intact. She may shower with dressings intact. - D/C macias catheter today, bedside commode will be obtained today. - Atrial fibrillation and other medical management per internal medicine and cardiology. Anti-coagulation is ok from orthopedic standpoint. - We will continue to follow patient closely while she remains inpatient. She may need rehab placement at discharge. Anticipate discharge tomorrow if medically stable, patient would like to be discharged home, she states she will have assistance from her daughter. - Patient will follow-up in the office in 2-3 weeks following discharge with Adriel Daniels PA-C, or Dr. Andrews.
--- NOTE | 2019-04-07 10:31 | P.PN ---
Progress Note - Text Progress Note Date: 04/07/19 Postoperative day #4 Patient is seen and examined today at bedside. The patient has some pain around the surgical site as expected. Pain is being controlled with medication. She is primarily taking oral medications. She is wondering if she could have access to an occasional IV medication if she needs through the night. She has been able to get up out of bed and was able to that on her own. She endplates with a walker. She still has limited ambulation in her room. She denies any chest pain or shortness of breath. Physical Exam Afebrile with stable vital signs her rhythm still shows atrial fibrillation but her rate is down around 70. Abdomen is soft nontender. Chest has good excursion deep and space expiration The incision site is clean dry and intact. No erythema there is no purulence. Extremities have not had neurologic change from prior to surgery. her left thighs and calves soft nontender. She has sustained dorsal flexion plantar flexion and EHL intact. Calves and thighs were soft nontender without evidence of DVT. Assessment/Plan Postoperative day #4 status post malleolus of decompression and fusion for her spondylolisthesis with severe spinal stenosis low back pain and lower extremity radiculopathy new atrial fibrillation with improved rate control Patient is progressing a little bit slowly as expected from the surgery given her overall body habitus prior condition to surgery and and some deconditioning . She has been able to make progress with her mobility and is able to ambulate with her walker. She still needs some assistance. We will continue to increase the patient's mobilization with therapy. It is likely that she'll need nursing home or home health at least after discharge. Her cardiac rate is better controlled with active management from cardiology. Like to continue to monitor her rate that further at least 1 more night as she also still has some fluid overload. She'll get her fully out but has been having to keep it in place due to the significant diuresis and her very limited mobility. Cardiology is hopeful that she'll be able to be discharged tomorrow. We will continue pain control with oral or IV medications. We'll continue to follow patient closely.
--- NOTE | 2019-04-07 11:28 | P.PN ---
Subjective Progress Note Date: 04/07/19 Principal diagnosis: Paroxysmal atrial fibrillation This is a 73-year-old female patient with history of hypertension who was admitted to the hospital and underwent lumbar spine surgery. The surgery complicated by atrial fibrillation which was newly diagnosed as to the patient. The patient was seen this morning. Overall she's feeling better. Her back pain has improved. She denies any chest pain or chest discomfort. She converted to normal sinus mechanism last night. She still on Cardizem drip at 5 mg per hour and metoprolol 25 mg by mouth twice a day. Oral anticoagulation is on hold at this point because of the recent spinal surgery. I'm going to DC the Cardizem drip and increase the dose of metoprolol. The patient possibly can be discharged in the next 24 hours and hopefully we can start her on small dose of oral anticoagulation. Beside that she is on Lasix IV and she still slightly hypervolemic and requiring 2 L of oxygen. I would continue that for additional 24 hours and switch her to oral diuretics tomorrow Objective - Vital Signs Vital signs: Vital Signs Temp 98.2 F 04/07/19 08:00 Pulse 78 04/07/19 08:00 Resp 18 04/07/19 08:00 BP 134/60 04/07/19 08:00 Pulse Ox 94 L 04/07/19 08:00 Intake & Output 04/06/19 04/07/19 04/07/19 18:59 06:59 18:59 Intake Total 777.667 40 200 Output Total 1200 1125 Balance -422.333 -1085 200 Weight 132.5 kg Intake: IV 40 Invasive Line 2 40 Intake, IV Titration 115.667 40 Amount Diltiazem 125 mg In 115.667 Sodium Chloride 0.9% 100 ml @ 5 MG/HR 5 mls/hr IV .Q24H [facility] Rx#:[id number] Sodium Chloride 0.9% 1, 40 000 ml @ 75 mls/hr IV . [id number] [facility] Rx#:[id number] Oral 622 200 Output: Urine 1200 1125 Other: Voiding Method Indwelling Catheter Indwelling Catheter Indwelling Catheter - Constitutional General appearance: Present: no acute distress - Respiratory Respiratory: bilateral: diminished - Cardiovascular Rhythm: regular - Labs CBC & Chem 7: 04/07/19 06:09 04/07/19 06:09 Labs: Abnormal Lab Results - Last 24 Hours (Table) 04/07/19 04/07/19 Range/Units 06:09 06:09 WBC 11.2 H (3.8-10.6) k/uL RBC 3.77 L (3.80-5.40) m/uL Hgb 10.7 L (11.4-16.0) gm/dL Hct 33.0 L (34.0-46.0) % Carbon Dioxide 37 H (22-30) mmol/L BUN 18 H (7-17) mg/dL Calcium 8.1 L (8.4-10.2) mg/dL Microbiology - Last 24 Hours (Table) 04/06/19 09:15 Blood Culture - Preliminary Blood No Growth after 24 hours Assessment and Plan Assessment: Assessment #1 status post a spinal surgery #2 paroxysmal atrial fibrillation #3 hypertension Plan #1 DC Cardizem IV and increase the dose of metoprolol #2 consider oral anticoagulation in the next 24 hours #3 continue diuretics for additional 24 hours #4 continue monitoring the kidney function and electrolytes #5 possible discharge in the next 24 hours
--- NOTE | 2019-04-07 12:22 | P.PN ---
Subjective patient is a pleasant 81-year-old female admitted for left lumbar decompression surgery of L3-L4 and L4-L5 and severe spinal stenosis patient successfully underwent surgery did not pass gas did not move her bowel yet patient doesn't have any Pop catheter this time. Patient denied any fever chills. Denied any cough dysuria.patient is still having severe pain in the back. 04/05/2019 Patient is still having significant of pain in the back does have good bowel sounds chest is clear to auscultation. 04/06/2019 Patient back pain is better but patient went into A. fib with rapid and regular rate for which patient was started on Cardizem. Echocardiogram is being obtained patient does have pulmonary edema because of junk doing heavy Lasix her EF is unknown at this time. Patient is short of breath. 04/07/2019 Patient heart rate is well controlled on his converted to sinus rhythm patient is in metoprolol dose of which is being increased by cardiology patient will be continued on IV Lasix patient is still on 2 L of oxygen as opposed to 12 L yesterday patient is improving patient back back pain is significantly better. Patient will be started on Eliquis anoxic parent will be discontinued Constitutional: Denied any fatigue denied any fever. Cardio vascular: denied any chest pain, palpitations Gastrointestinal denied any nausea vomiting Pulmonary: As mentioned in HPI Neurologic denied any new focal deficits All inpatient medications were reviewed and appropriate changes in these medications as dictated in the interval history and assessment and plan. Objective - Vital Signs Vital signs: Vital Signs Temp 97.7 F 04/07/19 11:47 Pulse 64 04/07/19 11:48 Resp 18 04/07/19 11:48 BP 95/51 04/07/19 11:47 Pulse Ox 93 L 04/07/19 11:47 Intake & Output 04/06/19 04/07/19 04/07/19 18:59 06:59 18:59 Intake Total 777.667 40 200 Output Total 1200 1125 Balance -422.333 -1085 200 Weight 132.5 kg Intake: IV 40 Invasive Line 2 40 Intake, IV Titration 115.667 40 Amount Diltiazem 125 mg In 115.667 Sodium Chloride 0.9% 100 ml @ 5 MG/HR 5 mls/hr IV .Q24H [facility] Rx#:[id number] Sodium Chloride 0.9% 1, 40 000 ml @ 75 mls/hr IV . [id number] [facility] Rx#:[id number] Oral 622 200 Output: Urine 1200 1125 Other: Voiding Method Indwelling Catheter Indwelling Catheter Indwelling Catheter - Exam PHYSICAL EXAMINATION: GENERAL: The patient is alert and oriented x3, not in any acute distress. Obese HEENT: Pupils are round and equally reacting to light. EOMI. No scleral icterus. No conjunctival pallor. Normocephalic, atraumatic. No pharyngeal erythema. No thyromegaly. CARDIOVASCULAR: S1 and S2 present. No murmurs, rubs, or gallops. Rate controlled irregular irregularly irregular rhythm PULMONARY: Chest is clear to auscultation, no wheezing or crackles. ABDOMEN: Soft, nontender, nondistended, normoactive bowel sounds. No palpable organomegaly. MUSCULOSKELETAL:deferred to primary service EXTREMITIES: No cyanosis, clubbing, or pedal edema. NEUROLOGICAL: Gross neurological examination did not reveal any focal deficits. SKIN: No rashes. - Labs CBC & Chem 7: 04/07/19 06:09 04/07/19 06:09 Labs: Abnormal Lab Results - Last 24 Hours (Table) 04/07/19 04/07/19 Range/Units 06:09 06:09 WBC 11.2 H (3.8-10.6) k/uL RBC 3.77 L (3.80-5.40) m/uL Hgb 10.7 L (11.4-16.0) gm/dL Hct 33.0 L (34.0-46.0) % Carbon Dioxide 37 H (22-30) mmol/L BUN 18 H (7-17) mg/dL Calcium 8.1 L (8.4-10.2) mg/dL Microbiology - Last 24 Hours (Table) 04/06/19 09:15 Blood Culture - Preliminary Blood No Growth after 24 hours Assessment and Plan Plan: -New-onset A. fib: Echocardiogram is still pending patient is rate controlled on metoprolol off Cardizem at this time. Patient will be started on Eliquis Lovenox will be discontinued -Congestive failure possibly of systolic dysfunction can be secondary to A. fib and equally is not available yet patient continued on Lasix patient is in acute heart failure exacerbation -hypertension: Patient is only on metoprolol at this time which will be continued and depending on the echo patient can be started on angiotensin receptor ale or KATIE inhibitor COPD without any acute exacerbation, patient is on 2 L of onset and probably for heart failure patient is clear to auscultation -leukocytosis reactive seconded to surgery no signs or symptoms of infection at this time -lumbar laminectomy: Pain management as per primary service
[2019-04-07] MEDS: traMADol 50 MG TAB PO PRN (19:33)
[2019-04-07] MEDS: DIAZEPAM 5 MG TAB PO PRN (21:41)
[2019-04-07] MEDS: APIXABAN 5 MG TAB PO SCH (21:41)
[2019-04-07] MEDS: METOPROLOL TARTRATE 50 MG TAB PO SCH (21:41)
[2019-04-08] MEDS: HYDROcodone/APAP 5-325MG 1 EACH TAB PO PRN ×3 (01:33→14:01)
[2019-04-08] MEDS: LACTATED RINGERS 1,000 ML IV SCH (05:22)
[2019-04-08] MEDS: traMADol 50 MG TAB PO PRN ×2 (05:44→15:58)
[2019-04-08] MEDS: DIAZEPAM 5 MG TAB PO PRN (05:45)
[2019-04-08 06:39] LABS: African American GFR (CKD) >90 (>60 ml/min/1.73 sqM); Blood Urea Nitrogen 19 mg/dL (7-17); Calcium 8.4 mg/dL (8.4-10.2); Chloride 95 mmol/L (98-107); Glucose 105 mg/dL (74-99); Non-African American GFR(CKD) 89 (>60 ml/min/1.73 sqM); Potassium 3.6 mmol/L (3.5-5.1); Sodium 137 mmol/L (137-145)
[2019-04-08 06:47] LABS: Anion Gap 3 mmol/L
[2019-04-08 06:55] LABS: Carbon Dioxide 39 mmol/L (22-30)
[2019-04-08] MEDS: ASCORBIC ACID 500 MG TAB PO SCH (08:34)
[2019-04-08] MEDS: SENNOSIDES-DOCUSATE SODIUM 1 EACH TAB PO SCH (08:35)
[2019-04-08] MEDS: APIXABAN 5 MG TAB PO SCH (08:35)
[2019-04-08] MEDS: METOPROLOL TARTRATE 50 MG TAB PO SCH (08:35)
[2019-04-08] MEDS: FUROSEMIDE 10 MG/ML 4 ML VIAL IV SCH (08:35)
--- NOTE | 2019-04-08 08:49 | P.DS ---
Providers Date of admission: 04/06/19 04:44 Expected date of discharge: 04/08/19 Attending physician: Marquita Andrews Consults: 04/03/19 19:06 Consult Physician Routine Consulting Provider: Magno Narayan Consult Reason/Comments: Medical management Do you want consulting provider notified?: Yes 04/06/19 04:42 Consult Physician Routine Consulting Provider: Bernardo Sanchez Consult Reason/Comments: new onset of aflutter Do you want consulting provider notified?: Yes Primary care physician: Quinten Banks, DO - Discharge Diagnosis(es) (1) Neurogenic claudication due to lumbar spinal stenosis Current Visit: Yes Status: Acute (2) Low back pain Current Visit: Yes Status: Acute (3) Radiculopathy with lower extremity symptoms Current Visit: Yes Status: Acute (4) Lower extremity weakness Current Visit: Yes Status: Acute (5) Lumbar degenerative disc disease Current Visit: Yes Status: Acute (6) Lumbar facet arthropathy Current Visit: Yes Status: Acute (7) Status post lumbar spinal fusion Current Visit: Yes Status: Acute (8) New onset atrial fibrillation Current Visit: Yes Status: Acute (9) Morbid obesity Current Visit: Yes Status: Acute (10) Spondylolisthesis at L3-L4 level Current Visit: Yes Status: Acute (11) Spondylolisthesis at L4-L5 level Current Visit: Yes Status: Acute Hospital Course: This is a pleasant 73-year-old female who presented with L3-4 and L4-5 spondylolisthesis and facet arthrosis with severe spinal canal stenosis, lower extremity weakness with radiculopathy, neurogenic claudication, low back pain, degenerative disc disease, and morbid obesity who failed outpatient conservative therapy. She was admitted for an L3-4 and L4-5 minimally invasive posterior lateral decompression and fusion with transforaminal lumbar interbody fusion. She initially was progressing quite slowly postoperatively. She had significant difficulty with any mobilization. She also started to experience atrial fibrillation over the weekend and was transferred to [facility] care. She's been seen by medicine and cardiology. She is currently in normal sinus rhythm. She was started on anticoagulation with Eliquis. She was able to return to the medical surgical floor. She feels her back pain and spasms have been better controlled. She continues taking [place] and Valium as prescribed for pain control. She denies any lower extremity radiculopathy bilaterally. She is very happy with her progress in regards to her lower extremities. She does admit to some bilateral hip pain. She is eating and voiding without difficulty. She has not had a bowel movement but is passing significant gas. She denies any abdominal pain. She feels she is ready for discharge home today with home health aid. She does not feel she needs rehabilitation facility at discharge. Condition on day of discharge stable. Patient will be discharged home. Patient was cleared preoperatively for surgery by Dr. Banks. Patient currently denies any nausea, vomiting, fever, or chills. Dressings have been removed with the surgical sites and surgical sites have remained clean, dry, and intact with some bruising. We discussed patient may shower at this time without dressings intact over the surgical sites. Patient should refrain from driving until at least after their first follow-up appointment in the office. Patient should avoid excessive bending, lifting, and twisting; no lifting greater than 10 pounds. We discussed patient will be cleared for discharge from an orthopedic spine standpoint pending clearance by cardiology and medicine. Patient will need a prescription for anticoagulation discharge. MAPS has been reviewed today, 04/08/2019, with an Overall Overdose Risk Score of 510. An "Opiod Start Talking" Form has been signed and placed in the patient's chart. A prescription has been written for [place] 10 mg/325 mg 1 tab every 4 hours as needed for pain, dispensed #42. Patient was previously prescribed [place] in outpatient setting. She will he has a couple tablets left. She should take this new prescription as prescribed as needed for pain control. Patient also given a prescription for Flexeril 10 mg 1 tab every 8 hours as he for muscle spasm, dispensed #45. She is also given a prescription for Senokot-S 1 tab take twice a day for constipation, dispensed #60. We discussed patient should avoid anti-inflammatory medications. She may resume other previously prescribed home medications and was instructed not to by medicine and cardiology. Prescriptions have been sent to the [facility] pharmacy within [facility]. Physical Exam on day of discharge: Patient is awake, alert, and oriented 3 Vital signs stable Good chest excursion with deep inspiration and expiration Abdomen soft nontender No signs or symptoms of DVT; no calf pain Extensor hallucis longus, plantarflexion, and dorsiflexion positive sustained bilateral lower extremities Incisions are clean, dry, and intact; no erythema, purulence, or signs of infe ction Dressing is removed during physical examination Some bruising around the surgical sites No active drainage from the surgical sites No sign of infection at the surgical site Procedures: L3-4 and L4-5 minimally invasive posterior lateral decompression and fusion with transforaminal lumbar interbody fusion Patient Condition at Discharge: Stable Plan - Discharge Summary Discharge Rx Participant: Yes New Discharge Prescriptions: New Apixaban [Eliquis] 5 mg PO BID #30 tab Cyclobenzaprine [Flexeril] 10 mg PO TID PRN #45 tab PRN Reason: Muscle Spasm Sennosides-Docusate Sodium [Senokot-S] 1 tab PO BID PRN #60 tablet PRN Reason: Constipation HYDROcodone/APAP 10-325MG [[place] 10] 1 each PO Q4H PRN #42 tab PRN Reason: Pain No Action Meloxicam [Mobic] 7.5 mg PO DAILY Losartan-Hctz 50-12.5 mg [Hyzaar 50-12.5] 1 tab PO HS HYDROcodone/APAP 10-325MG [[place] 10-325] 1 tab PO BID amLODIPine BESYLATE [Norvasc] 5 mg PO HS Silver Supplement 50 mg PO DAILY Biotin 10,000 mcg PO DAILY Ascorbic Acid [Vitamin C with Esther Hips] 1,000 mg PO DAILY Discharge Medication List Ascorbic Acid [Vitamin C with Esther Hips] 1,000 mg PO DAILY 04/01/19 [History] Biotin 10,000 mcg PO DAILY 04/01/19 [History] HYDROcodone/APAP 10-325MG [[place] 10-325] 1 tab PO BID 04/01/19 [History] Losartan-Hctz 50-12.5 mg [Hyzaar 50-12.5] 1 tab PO HS 04/01/19 [History] Meloxicam [Mobic] 7.5 mg PO DAILY 04/01/19 [History] Silver Supplement 50 mg PO DAILY 04/01/19 [History] amLODIPine BESYLATE [Norvasc] 5 mg PO HS 04/01/19 [History] Apixaban [Eliquis] 5 mg PO BID #30 tab 04/07/19 [Rx] Cyclobenzaprine [Flexeril] 10 mg PO TID PRN #45 tab 04/08/19 [Rx] HYDROcodone/APAP 10-325MG [[place] 10] 1 each PO Q4H PRN #42 tab 04/08/19 [Rx] Sennosides-Docusate Sodium [Senokot-S] 1 tab PO BID PRN #60 tablet 04/08/19 [Rx] Follow up Appointment(s)/Referral(s): [facility] [NON-STAFF] - As Needed (hospital bed ) Maurice Daniels, URVASHI [PHYSICIAN MOBILE HOME SET UP PERSON] - 2 Weeks (Patient may follow-up with Maurice Daniels PA-C or Dr. Bishop Andrews at [facility] in 2-3 weeks following discharge. ) Activity/Diet/Wound Care/Special Instructions: [facility] care: #[phone] 1. Patient may shower without a dressing at this time. 2. Patient should refrain from driving until at least after their first follow- up appointment in the office. 3. Patient should avoid excessive bending, twisting, and lifting; no lifting greater than 10 pounds 4. Take medications as prescribed 5. Do not soak in tub Discharge Disposition: HOME WITH HOME HEALTH SERVICES
--- NOTE | 2019-04-08 11:01 | ECHOF ---
Referral Reason:lv fxn MEASUREMENTS -------- HEIGHT: 172.7 cm WEIGHT: 132.4 kg BP: 121/69 RVIDd: 3.7 cm (< 3.3) IVSd: 1.5 cm (0.6 - 1.1) LVIDd: 4.1 cm (3.9 - 5.3) LVPWd: 1.5 cm (0.6 - 1.1) IVSs: 2.1 cm LVIDs: 2.7 cm LVPWs: 1.8 cm LA Diam: 3.6 cm (2.7 - 3.8) Ao Diam: 3.3 cm (2.0 - 3.7) AV Cusp: 2.0 cm (1.5 - 2.6) MV EXCURSION: 15.488 mm (> 18.000) MV EF SLOPE: 78 mm/s (70 - 150) EPSS: 0.5 cm MV E Mac: 1.09 m/s MV DecT: 241 ms MV A Mac: 1.11 m/s MV E/A Ratio: 0.98 RAP: 5.00 mmHg RVSP: 39.58 mmHg FINDINGS -------- Sinus rhythm. This was a technically difficult study with suboptimal apical views. The left ventricular size is normal. There is moderate concentric left ventricular hypertrophy. O verall left ventricular systolic function is normal with, an EF between 60 - 65 %. The right ventricle is mildly enlarged. Normal LA size by volume 22+/-6 ml/m2. The right atrium is normal in size. 5 ml of Lumason was utilized for enhancement of images. Interatrial and interventricular septum intact. There is mild aortic valve sclerosis. Mild mitral regurgitation is present. Mild tricuspid regurgitation present. There is mild pulmonary hypertension. The right ventricular systolic pressure, as measured by Doppler, is 39.58mmHg. Trace/mild (physiologic) pulmonic regurgitation. The aortic root size is normal. Normal inferior vena cava with normal inspiratory collapse consistent with estimated right atrial pre ssure of 5 mmHg. The inferior vena cava is mildly dilated. There is no pericardial effusion. CONCLUSIONS -------- 1. Sinus rhythm. 2. This was a technically difficult study with suboptimal apical views. 3. The left ventricular size is normal. 4. There is moderate concentric left ventricular hypertrophy. 5. Overall left ventricular systolic function is normal with, an EF between 60 - 65 %. 6. The right ventricle is mildly enlarged. 7. Normal LA size by volume 22+/-6 ml/m2. 8. The right atrium is normal in size. 9. 5 ml of Lumason was utilized for enhancement of images. 10. Interatrial and interventricular septum intact. 11. There is mild aortic valve sclerosis. 12. Mild mitral regurgitation is present. 13. Mild tricuspid regurgitation present. 14. There is mild pulmonary hypertension. 15. The right ventricular systolic pressure, as measured by Doppler, is 39.58mmHg. 16. Trace/mild (physiologic) pulmonic regurgitation. 17. The aortic root size is normal. 18. Normal inferior vena cava with normal inspiratory collapse consistent with estimated right atrial pressure of 5 mmHg. 19. The inferior vena cava is mildly dilated. 20. There is no pericardial effusion. CONTINUOUS IMPROVEMENT LEAD: Leticia Livingston RDCS
--- NOTE | 2019-04-08 15:13 | P.PN ---
Subjective Progress Note Date: 04/08/19 Principal diagnosis: patient is a pleasant 81-year-old female admitted for left lumbar decompression surgery of L3-L4 and L4-L5 and severe spinal stenosis patient successfully unde rwent surgery did not pass gas did not move her bowel yet patient doesn't have any Pop catheter this time. Patient denied any fever chills. Denied any cough dysuria.patient is still having severe pain in the back. 04/05/2019 Patient is still having significant of pain in the back does have good bowel sounds chest is clear to auscultation. 04/06/2019 Patient back pain is better but patient went into A. fib with rapid and regular rate for which patient was started on Cardizem. Echocardiogram is being obtained patient does have pulmonary edema because of junk doing heavy Lasix her EF is unknown at this time. Patient is short of breath. 04/07/2019 Patient heart rate is well controlled on his converted to sinus rhythm patient is in metoprolol dose of which is being increased by cardiology patient will be continued on IV Lasix patient is still on 2 L of oxygen as opposed to 12 L yeste rday patient is improving patient back back pain is significantly better. Patient will be started on Eliquis anoxic parent will be discontinued 04/08/2019 Patient is lying in bed and appears to be in no acute distress. Patient's oxygen saturations have improved and is currently on room air. Patient is currently on Lasix and will continue at this time. Patient will likely resume her home dose of losartan/hydrochlorothiazide as it contains a diuretic and will discontinue Norvasc in the outpatient setting. Patient will continue on Eliquis in the outpatient setting. Patient denies any shortness of breath, chest pain, or palpitations. Patient is afebrile. Patient denies any nausea or vomiting and has been tolerating diet. Patient states that her back pain is much more manageable today. She would like to go home today and awaiting cardiology clearance. Objective - Vital Signs Vital signs: Vital Signs Temp 98.3 F 04/08/19 07:15 Pulse 75 04/08/19 07:15 Resp 17 04/08/19 07:15 BP 135/64 04/08/19 07:15 Pulse Ox 92 L 04/08/19 07:15 Intake & Output 04/07/19 04/08/19 04/08/19 18:59 06:59 18:59 Intake Total 1210 540 Output Total 1500 650 Balance -290 -650 540 Weight 131.3 kg Intake: IV 10 Invasive Line 2 10 Oral 1200 540 Output: Urine 1500 650 Uretheral (Pop) 1500 Other: Voiding Method Bedside Commode Toilet Bedside Commode # Voids 3 4 # Bowel Movements 1 - Exam GENERAL: The patient is alert and oriented x3, not in any acute distress. Obese HEENT: Pupils are round and equally reacting to light. EOMI. No scleral icterus. No conjunctival pallor. Normocephalic, atraumatic. No pharyngeal erythema. No thyromegaly. CARDIOVASCULAR: S1 and S2 present. No murmurs, rubs, or gallops. Rate controlled irregularly irregular rhythm PULMONARY: Chest is clear to auscultation, no wheezing or crackles. ABDOMEN: Soft, nontender, nondistended, normoactive bowel sounds. No palpable organomegaly. MUSCULOSKELETAL:deferred to primary service EXTREMITIES: No cyanosis, clubbing, or pedal edema. NEUROLOGICAL: Gross neurological examination did not reveal any focal deficits. SKIN: No rashes. - Labs CBC & Chem 7: 04/07/19 06:09 04/08/19 05:53 Labs: Abnormal Lab Results - Last 24 Hours (Table) 04/08/19 Range/Units 05:53 Chloride 95 L (98-107) mmol/L Carbon Dioxide 39 H (22-30) mmol/L BUN 19 H (7-17) mg/dL Glucose 105 H (74-99) mg/dL Microbiology - Last 24 Hours (Table) 04/06/19 09:15 Blood Culture - Preliminary Blood No Growth after 48 hours Assessment and Plan Assessment: -New-onset A. fib: Echocardiogram is still pending patient is rate controlled on metoprolol off Cardizem at this time. Patient will be started on Eliquis Lovenox will be discontinued -Congestive failure possibly of systolic dysfunction can be secondary to A. fib and echo is not available yet patient continued on Lasix patient is in acute heart failure exacerbation -hypertension: Patient is only on metoprolol at this time which will be continued and depending on the echo patient can be started on angiotensin receptor ale or KATIE inhibitor -COPD without any acute exacerbation, patient is on 2 L of oxygen and probably for heart failure patient is clear to auscultation -leukocytosis reactive secondary to surgery no signs or symptoms of infection at this time -lumbar laminectomy: Pain management as per primary service Plan: Patient will be continued on current medications, management, and symptomatic treatment. Underwent an echo today showing overall left ventricular systolic function is normal with an EF between 60 and 65% with mild mitral and tricuspid regurgitation present along with mild pulmonary hypertension. Awaiting cardiology clearance for discharge home today. Patient will be going home with home care once discharged. Further recommendations to follow. Possible discharge today.
[2019-04-08 15:15] VITALS: BP 157/69; PULSE 68; RESP 16; TEMP 98
== END 2019-04-08 16:45 | disposition home health service (06) | DRG 981 ==
LOC: OR 09:29 → 4SSUR 20:39 → OR 04-06 05:01 → 3SCARD 04-06 05:23 → 4SSUR 04-07 18:25
PROVIDERS: ADMIT Orthopaedic Surgery Orthopaedic Surgery of the Spine; ATTEND Orthopaedic Surgery Orthopaedic Surgery of the Spine
PROC: 0SG00AJ Fusion of Lumbar Vertebral Joint with Interbody Fusion Device, Posterior Approach, Anterior Column, Open Approach (ICD-10-PCS; 2019-04-03)
PROC: 01NB0ZZ Release Lumbar Nerve, Open Approach (ICD-10-PCS; 2019-04-03)
PROC: 0ST20ZZ Resection of Lumbar Vertebral Disc, Open Approach (ICD-10-PCS; 2019-04-03)
PROC: 07DS0ZZ Extraction of Vertebral Bone Marrow, Open Approach (ICD-10-PCS; 2019-04-03)
PROC: 8E0WXBZ Computer Assisted Procedure of Trunk Region (ICD-10-PCS; 2019-04-03)
PROC: 0SG0071 Fusion of Lumbar Vertebral Joint with Autologous Tissue Substitute, Posterior Approach, Posterior Column, Open Approach (ICD-10-PCS; principal; 2019-04-03 10:25)
DX: I48.0 Paroxysmal atrial fibrillation (principal); I50.21 Acute systolic (congestive) heart failure; Z68.41 Body mass index [BMI] 40.0-44.9, adult; I48.92 Unspecified atrial flutter; I11.0 Hypertensive heart disease with heart failure; D72.829 Elevated white blood cell count, unspecified; E66.01 Morbid (severe) obesity due to excess calories; M48.062 Spinal stenosis, lumbar region with neurogenic claudication; M47.26 Other spondylosis with radiculopathy, lumbar region; M51.16 Intervertebral disc disorders with radiculopathy, lumbar region; M43.16 Spondylolisthesis, lumbar region; J44.9 Chronic obstructive pulmonary disease, unspecified; K59.00 Constipation, unspecified; Z79.1 Long term (current) use of non-steroidal anti-inflammatories (NSAID); Z79.899 Other long term (current) drug therapy; Z80.6 Family history of leukemia; Z85.828 Personal history of other malignant neoplasm of skin; Z87.891 Personal history of nicotine dependence; Z96.653 Presence of artificial knee joint, bilateral; Z98.42 Cataract extraction status, left eye; Z98.41 Cataract extraction status, right eye; Z98.1 Arthrodesis status
CPT/HCPCS: 71045; 72020; 80048; 83605; 83735; 83880; 85025; 85027; 86850; 86891; 86900; 86901; 87040; 93005; 93306; 94760